=== PATIENT | female | born 1995 | race Caucasian/White ===

== ENCOUNTER 2017-09-24 07:01 | Day surgery (SDC) | payer OTHER ==
[~2017-09-24] VITALS: Ht 157.5 cm; Wt 83.0 kg
[2017-09-24] MEDS ORDERED: LIDOCAINE 2% 1000 MG/50 ML VIAL INJ ONE (09:57)
[2017-09-24] MEDS ORDERED: MIDAZOLAM 2 MG/2 ML VIAL ONE (10:41)
[2017-09-24] MEDS ORDERED: fentaNYL 0.05 MG/ML VIAL ONE (10:41)
[2017-09-24] MEDS ORDERED: MORPHINE SULFATE 2 MG/ML SYR IVP PRN (11:05)
[2017-09-24] MEDS ORDERED: MORPHINE SULFATE 2 MG/ML SYR ONE (11:18)
[2017-09-24] MEDS ORDERED: MIDAZOLAM 2 MG/2 ML VIAL IVP ONE (11:40)
[2017-09-24] MEDS ORDERED: fentaNYL 0.05 MG/ML VIAL IVP ONE (11:40)
== END 2017-09-24 12:26 | disposition home or self-care (01) ==
LOC: MMU 07:01 → MOR 07:01
PROVIDERS: ATTEND Internal Medicine Gastroenterology
DX: K76.0 Fatty (change of) liver, not elsewhere classified (principal); D50.9 Iron deficiency anemia, unspecified; E66.9 Obesity, unspecified; Z68.32 Body mass index [BMI] 32.0-32.9, adult
CPT/HCPCS: 47000; 76942; J2001; J2250; J2270; J3010; Q0092